=== PATIENT | male | born 1975 | race African-American/Black ===

== ENCOUNTER 2017-08-14 12:17 | Emergency (ER) | payer MEDICAID ==
[~2017-08-14] VITALS: Ht 167.6 cm; Wt 70.0 kg
[2017-08-14 14:07] LABS: KETONES URINE NEGATIVE (NEGATIVE); LEUKOCYTE ESTERASE URINE NEGATIVE (NEGATIVE); NITRITE URINE NEGATIVE (NEGATIVE); OCCULT BLOOD URINE NEGATIVE (NEGATIVE); PROTEIN URINE 1+ (NEGATIVE); UROBILINOGEN URINE 0.2 E.U./dL (0.2-1.0)
[2017-08-14 14:12] LABS: CLARITY URINE CLEAR (CLEAR); COLOR URINE YELLOW (YELLOW)
[2017-08-14] MEDS ORDERED: CLONIDINE 0.2MG TABLET PO ONE (14:15)
[2017-08-14 15:40] LABS: BASOPHILS % 0.8 % (0.0-2.0); EOSINOPHILS % 1.2 % (0.0-5.0); HEMATOCRIT. 43.3 % (42.0-52.0); HEMOGLOBIN. 15.1 g/dL (14.0-18.0); MEAN CORPUSCULAR HEMOGLOBIN 30.7 pg (28.0-32.0); MEAN CORPUSCULAR VOLUME 87.6 fL (80.0-94.0); MEAN PLATELET VOLUME 10.4 fl (7.4-10.4); MONOCYTES % 7.4 % (2.0-8.0); NEUTROPHILS % 55.6 % (40.0-76.0); PLATELET 159 x1000/uL (130-400); RED BLOOD CELL COUNT 4.94 mill/uL (4.7-6.1); RED CELL DISTRIBUTION WIDTH 13.9 % (11.6-14.6)
[2017-08-14 15:53] LABS: CHLORIDE 103 mEq/L (98-107)
[2017-08-14 16:00] LABS: PROTHROMBIN TIME 10.7 sec (9.4-11.6)
[2017-08-14] MEDS ORDERED: AMLODIPINE 5MG TABLET PO ONE (17:00)
[2017-08-14 18:00] VITALS: BP 188/110
== END 2017-08-14 18:12 | disposition home or self-care (01) ==
LOC: ER 14:34
DX: R51 Headache (principal); I10 Essential (primary) hypertension; F17.200 Nicotine dependence, unspecified, uncomplicated; F12.10 Cannabis abuse, uncomplicated
CPT/HCPCS: 36415; 70450; 71045; 80053; 81003; 83880; 84484; 85025; 85610; 93005; 99285

== ENCOUNTER 2017-08-23 10:23 | Emergency (ER) | payer MEDICAID | END 2017-08-23 13:17 | disposition left against medical advice (07) | LOC: ER 10:23 | DX: I10 Essential (primary) hypertension (principal); Z53.21 Procedure and treatment not carried out due to patient leaving prior to being seen by health care provider ==

== ENCOUNTER 2017-09-02 10:20 | Emergency (ER) | payer MEDICAID ==
[~2017-09-02] VITALS: Ht 167.6 cm; Wt 77.0 kg
[2017-09-02 10:54] VITALS: BP 180/116
== END 2017-09-02 15:50 | disposition left against medical advice (07) ==
LOC: ER 10:20
DX: I10 Essential (primary) hypertension (principal); Z53.21 Procedure and treatment not carried out due to patient leaving prior to being seen by health care provider